=== PATIENT | male | born 1940 | race Caucasian/White ===

== ENCOUNTER 2022-09-26 11:49 | Emergency (ER) | payer OTHER ==
[2022-09-26 12:13] VITALS: BP 134/86; PULSE 108; RESP 18; TEMP 98.2; BMI 29.5
[2022-09-26] MEDS ORDERED: DIPHTH,PERTUSS(ACELL),TET 0.5 ML DISP.SYRIN IM ONE ×3 (12:33→13:38)
[2022-09-26 13:30] LABS: POTASSIUM 4.1 mmol/L (3.5-5.1)
[2022-09-26 13:32] LABS: CALCIUM 9.8 mg/dL (8.5-10.1)
[2022-09-26 13:33] LABS: ALBUMIN 3.8 g/dl (3.4-5.0)
[2022-09-26 13:36] LABS: CREATININE 1.2 mg/dL (0.55-1.3)
[2022-09-26 13:37] LABS: BILIRUBIN,TOTAL 0.6 mg/dL (0.2-1); TOT PROT 7.7 g/dl (6.4-8.2)
[2022-09-26 13:39] LABS: N-TERMINAL BNP 28.1 pg/ml (5-450)
[2022-09-26 13:39] LABS: BASO % 0.8 % (0-2.0); EOS % 0.9 % (0-4.5); HEMATOCRIT 45.6 % (35.4-49); HEMOGLOBIN 15.8 GM/dL (11.7-16.9); LYMPH % 25.5 % (8-40); MCH 31.7 pg (25.7-33.7); MCHC 34.6 g/dl (32.0-35.9); MEAN CELL VOLUME 91.7 fl (80-96); MEAN PLT VOLUME 8.1 fl (7.5-11.1); NEUT % 63.8 % (42.8-82.8); PLATELET COUNT 131 10^3/uL (134-434); RBC 4.98 M/mm3 (4.00-5.60); RDW 15.3 % (11.9-15.9); WHITE BLOOD COUNT 6.9 K/mm3 (4.0-10.0)
[2022-09-26 13:41] LABS: PROTHROMBIN TIME (PATIENT) 11.6 SEC (9.7-13.0); VENOUS BASE EXCESS 1.4 mmol/L (-2-2); VENOUS PCO2 43.9 mmHg (38-52); VENOUS PH 7.401 (7.310-7.410)
[2022-09-26 13:44] LABS: ACTIVATED PTT 25.7 SECONDS (25.2-36.5)
[2022-09-26] MEDS ORDERED: ALBUTEROL SO4 0.083% IH SOL 2.5 MG/3 ML VIAL.NEB. NEB ONE ×2 (15:40→15:53)
[2022-09-26] MEDS ORDERED: BACITRACIN ZINC 15 GM TUBE TOPICAL OINTMENT TP ONE (16:13)
[2022-09-26] MEDS ORDERED: BACITRACIN ZINC 15 GM TUBE TOPICAL OINTMENT ONE (16:27)
== END 2022-09-26 16:32 | disposition home or self-care (01) ==
LOC: JER 11:49
PROC: 3E0F7GC Introduction of Other Therapeutic Substance into Respiratory Tract, Via Natural or Artificial Opening (ICD-10-PCS; principal; 2022-09-26)
PROC: 3E0234Z Introduction of Serum, Toxoid and Vaccine into Muscle, Percutaneous Approach (ICD-10-PCS; 2022-09-26)
DX: S01.81XA Laceration without foreign body of other part of head, initial encounter (principal); R06.02 Shortness of breath; R00.0 Tachycardia, unspecified; W10.9XXA Fall (on) (from) unspecified stairs and steps, initial encounter
CPT/HCPCS: 36415; 70450-TC; 70486-TC; 71045-TC-FY; 71275-TC; 72125-TC; 72170-TC-FY; 73130-TC-LT-FY; 80053; 82550; 82803; 83735; 83880; 84484; 85025; 85379; 85610; 85730; 90471; 90715; 93005; 93010; 94640; 99285-25; Q9967